=== PATIENT | male | born 1960 | race Caucasian/White ===

== ENCOUNTER 2018-12-06 10:26 | Emergency (ER) | payer SELFPAY ==
[2018-12-06] MEDS ORDERED: Aspirin 81 MG Tab.Chew PO ONE (10:33)
[2018-12-06] MEDS ORDERED: Sodium Chloride 0.9% 10 ML Syringe FLUSH PRN (10:33)
[2018-12-06] MEDS ORDERED: Heparin Sodium 5,000 Units/ML Vial SUBCUT ONE (10:40)
[2018-12-06] MEDS ORDERED: Nitroglycerin/D5W 25 MG/250 ML BOTTLE IV SCH (10:45)
[2018-12-06] MEDS ORDERED: Heparin Sodium/0.45% NaCl 25,000 UNITS/500 ML BAG IV SCH (10:45)
--- NOTE | 2018-12-06 10:46 | EDM.PDOC ---
ED HPI GENERAL MEDICAL PROBLEM - General Stated Complaint: CHEST PAIN Time Seen by Provider: 12/06/18 10:26 Source of Information: Reports: Patient History Limitations: Reports: No Limitations - History of Present Illness INITIAL COMMENTS - FREE TEXT/NARRATIVE: 58 y.o.w.m in prev relative health condition, came to the ed with a friend due to severe SSCP while shoveling snow. Pain was 10/10.as he arrived in the ED examination room, pt refused Tx, IV. 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 Pt did not radiate , pt was not diaphoretic at the time. No N/V/D no other acute med issues. BP 156/96 Pulse 83 Temp 36.8 Pulse ox 98% on RA RR 18 Onset Date: 12/06/18 Onset Time: 06:00 Duration: Minutes:, Hour(s):, Getting Worse Location: Reports: Chest Quality: Reports: Pressure, Throbbing Severity: Moderate Improves with: Reports: Rest Worsens with: Reports: Movement Context: Reports: Activity (showeling snow) Associated Symptoms: Reports: Chest Pain Treatments JOINERY MACHINIST: Reports: Aspirin - Related Data Allergies Allergy/AdvReac Type Severity Reaction Status Date / Time No Known Allergies Allergy Verified 12/06/18 10:42 Home Meds: Home Meds NK [No Known Home Meds] 12/06/18 [History] ED ROS GENERAL - Review of Systems Review Of Systems: See Below Constitutional: Reports: No Symptoms HEENT: Reports: No Symptoms Respiratory: Reports: No Symptoms Cardiovascular: Reports: Chest Pain Endocrine: Reports: No Symptoms GI/Abdominal: Reports: No Symptoms : Reports: No Symptoms Musculoskeletal: Reports: No Symptoms Skin: Reports: No Symptoms Neurological: Reports: No Symptoms Psychiatric: Reports: No Symptoms Hematologic/Lymphatic: Reports: No Symptoms Immunologic: Reports: No Symptoms ED EXAM, GENERAL - Physical Exam Exam: See Below Exam Limited By: Uncooperative (Ptrefused IVs and Tx) General Appearance: Alert, WD/WN, Moderate Distress Eye Exam: Bilateral Eye: Normal Inspection Ears: Normal External Exam Ear Exam: Bilateral Ear: Auricle Normal Nose: Normal Inspection, Normal Mucosa Throat/Mouth: Normal Lips, Normal Voice, No Airway Compromise Head: Atraumatic, Normocephalic Neck: Normal Inspection, Supple, Non-Tender, Full Range of Motion Respiratory/Chest: No Respiratory Distress, Lungs Clear, Normal Breath Sounds Cardiovascular: Normal Peripheral Pulses, Regular Rate, Rhythm GI/Abdominal: Normal Bowel Sounds, Soft, Non-Tender (Male) Exam: Deferred Rectal (Males) Exam: Deferred Back Exam: Normal Inspection, Full Range of Motion Extremities: Normal Inspection, Normal Range of Motion, Non-Tender, No Pedal Edema, Normal Capillary Refill Neurological: Alert, Oriented, CN II-XII Intact, Normal Cognition, Normal Gait Psychiatric: Normal Affect Skin Exam: Warm, Dry, Intact, Normal Color, No Rash Lymphatic: No Adenopathy EKG INTERPRETATION EKG Date: 12/06/18 Time: 10:30 Rate (Beats/Min): 86 Excel: Normal P-Wave: Present QRS: Normal ST-T: Elevated QT: Normal Comparison: NA - No Prior EKG (acute inf wall OK) Course - Vital Signs Text/Narrative:: 58 y.o.w.m in prev relative health condition, came to the ed with a friend due to severe SSCP while shoveling snow. Pain was 10/10.as he arrived in the ED examination room, pt refused Tx, IV. 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 Pt did not radiate , pt was not diaphoretic at the time. No N/V/D no other acute med issues. BP 156/96 Pulse 83 Temp 36.8 Pulse ox 98% on RA RR 18 PE: WNWD muscular male with SSCP Imaging: CXR: NAD Labs: CBC nl BMP nl Troponin 0.030 ECG: ST Elevation inf leads Impression: acute inf wall OK Tx: ASA, Heparin drip with bolus, NTG drip, Brilinta Reeaxm: Pt refused for about one hour any Tx, Staff could not convict him until he spoke to a friend. 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 STAT Last Recorded V/S: Last Vital Signs Temp Pulse 97 12/06/18 11:01 Resp BP 156/96 H 12/06/18 11:01 Pulse Ox - Orders/Labs/Meds Orders: Active Orders 24 hr Category Date Time Status Cardiac Monitoring [RC] .As Directed Care 12/06/18 10:33 Active EKG Documentation Completion [RC] ASDIRECTED Care 12/06/18 10:46 Inactive CXR [Chest 1V Frontal] [CR] Stat Exams 12/06/18 10:43 Taken Heparin Sodium/0.45% NaCl [Heparin 25,000 Units in 1/2 Med 12/06/18 10:45 Active NS 500 ML] 25,000 units in 500 ml IV TITRATE Nitroglycerin/D5W [Nitroglycerin 25 MG/D5W 250 ML] Med 12/06/18 10:45 Active 25 mg in 250 ml IV TITRATE Sodium Chloride 0.9% [Saline Flush] Med 12/06/18 10:33 Active 10 ml FLUSH ASDIRECTED PRN Peripheral IV Insertion Adult [OM.PC] Stat Oth 12/06/18 10:33 Ordered EKG 12 Lead [EK] Routine Ther 12/06/18 10:45 Stop Req EKG 12 Lead [EK] Routine Ther 12/06/18 11:01 Ordered EKG 12 Lead [EK] Stat Ther 12/06/18 10:34 Ordered Medication Orders Nitroglycerin/Dextrose (Nitroglycerin 25 Mg/D5w 250 Ml) 25 mg in 250 mls @ 6 mls/hr IV TITRATE REAL; Protocol Last Admin: 12/06/18 11:18 Dose: 10 mcg/min, 6 mls/hr Heparin Sodium/Sodium Chloride (Heparin 25,000 Units In 1/2 Ns 500 Ml) 25,000 units in 500 mls @ 18 mls/hr IV TITRATE REAL; Protocol Last Admin: 12/06/18 11:10 Dose: 12 units/kg/hr, 18 mls/hr Sodium Chloride (Saline Flush) 10 ml FLUSH ASDIRECTED PRN PRN Reason: Keep Vein Open Labs: Laboratory Tests 12/06/18 12/06/18 12/06/18 Range/Units 10:20 10:20 10:20 WBC 11.2 (4.5-12.0) X10-3/uL RBC 4.46 (4.30-5.75) x10(6)uL Hgb 13.9 (11.5-15.5) g/dL Hct 40.0 (30.0-51.3) % MCV 89.7 (80-96) fL MCH 31.1 (27.7-33.6) pg MCHC 34.7 (32.2-35.4) g/dL RDW 12.4 (11.5-15.5) % Plt Count 191 (125-369) X10(3)uL MPV 8.5 (7.4-10.4) fL Neut % (Auto) 72.5 (46-82) % Lymph % (Auto) 21.3 (13-37) % [place] % (Auto) 5.1 (4-12) % Eos % (Auto) 1 (1.0-5.0) % Baso % (Auto) 0 (0-2) % Neut # (Auto) 8.1 (1.6-8.3) # Lymph # (Auto) 2.4 (0.6-5.0) # [place] # (Auto) 0.6 (0.0-1.3) # Eos # (Auto) 0.1 (0.0-0.8) # Baso # (Auto) 0.0 (0.0-0.2) # PT 9.9 (8.7-11.1) INR 1.02 (0.89-1.13) Sodium 136 (135-145) mmol/L Potassium 3.7 (3.5-5.3) mmol/L Chloride 100 (100-110) mmol/L Carbon Dioxide 25 (21-32) mmol/L BUN 24 H (7-18) mg/dL Creatinine 1.0 (0.70-1.30) mg/dL Est Cr Clr Drug Dosing TNP Estimated GFR (MDRD) > 60 (>60) BUN/Creatinine Ratio 24.0 H (9-20) Glucose 203 H (80-116) mg/dL Calcium 9.0 (8.6-10.2) mg/dL Troponin I (<0.017-0.056) ng/mL 12/06/18 Range/Units 10:20 WBC (4.5-12.0) X10-3/uL RBC (4.30-5.75) x10(6)uL Hgb (11.5-15.5) g/dL Hct (30.0-51.3) % MCV (80-96) fL MCH (27.7-33.6) pg MCHC (32.2-35.4) g/dL RDW (11.5-15.5) % Plt Count (125-369) X10(3)uL MPV (7.4-10.4) fL Neut % (Auto) (46-82) % Lymph % (Auto) (13-37) % [place] % (Auto) (4-12) % Eos % (Auto) (1.0-5.0) % Baso % (Auto) (0-2) % Neut # (Auto) (1.6-8.3) # Lymph # (Auto) (0.6-5.0) # [place] # (Auto) (0.0-1.3) # Eos # (Auto) (0.0-0.8) # Baso # (Auto) (0.0-0.2) # PT (8.7-11.1) INR (0.89-1.13) Sodium (135-145) mmol/L Potassium (3.5-5.3) mmol/L Chloride (100-110) mmol/L Carbon Dioxide (21-32) mmol/L BUN (7-18) mg/dL Creatinine (0.70-1.30) mg/dL Est Cr Clr Drug Dosing Estimated GFR (MDRD) (>60) BUN/Creatinine Ratio (9-20) Glucose (80-116) mg/dL Calcium (8.6-10.2) mg/dL Troponin I 0.030 (<0.017-0.056) ng/mL Meds: Medications Generic Name Dose Route Start Last Admin Trade Name Daleq PRN Reason Stop Dose Admin Nitroglycerin/Dextrose 25 mg in 250 mls @ 6 mls/hr 12/06/18 10:45 12/06/18 11 :18 Nitroglycerin 25 Mg/D5w 250 Ml IV 10 mcg/min TITRATE REAL 6 mls/hr Administration Protocol 10 MCG/MIN Heparin Sodium/Sodium Chloride 25,000 units in 500 mls @ 18 mls/hr 12/06/18 10 :45 12/06/18 11:10 Heparin 25,000 Units In 1/2 Ns 500 Ml IV 12 units/kg/hr TITRATE REAL 18 mls/hr Administration Protocol 12 UNITS/KG/HR Sodium Chloride 10 ml 12/06/18 10:33 Saline Flush FLUSH ASDIRECTED PRN Keep Vein Open Discontinued Medications Generic Name Dose Route Start Last Admin Trade Name Daleq PRN Reason Stop Dose Admin Aspirin 324 mg 12/06/18 10:33 12/06/18 10:49 Aspirin PO 12/06/18 10:34 81 mg ONETIME ONE Administration Heparin Sodium (Porcine) 4,200 units 12/06/18 10:40 12/06/18 11:08 Heparin Sodium SUBCUT 12/06/18 10:41 4,200 units ONETIME ONE Administration Metoprolol Tartrate 2.5 mg 12/06/18 10:58 12/06/18 11:01 Lopressor IVPUSH 12/06/18 10:59 2.5 mg ONETIME ONE Administration Ticagrelor 180 mg 12/06/18 11:41 12/06/18 11:45 Brilinta PO 12/06/18 11:42 180 mg ONETIME ONE Administration Departure - Departure Time of Disposition: 11:41 Disposition: DC/Tfer to Acute Hospital 02 Reason for Transfer *Q: Other (Acute OK) Condition: Fair Clinical Impression: Acute OK Referrals: PCP,None [Primary Care Provider] - - My Orders Last 24 Hours: My Active Orders 12/06/18 10:33 Cardiac Monitoring [RC] .As Directed Sodium Chloride 0.9% [Saline Flush] 10 ml FLUSH ASDIRECTED PRN Peripheral IV Insertion Adult [OM.PC] Stat 12/06/18 10:34 EKG 12 Lead [EK] Stat 12/06/18 10:43 CXR [Chest 1V Frontal] [CR] Stat 12/06/18 10:45 Heparin Sodium/0.45% NaCl [Heparin 25,000 Units in 1/2 NS 500 ML] 25,000 units in 500 ml IV TITRATE Nitroglycerin/D5W [Nitroglycerin 25 MG/D5W 250 ML] 25 mg in 250 ml IV TITRATE EKG 12 Lead [EK] Routine 12/06/18 10:46 EKG Documentation Completion [RC] ASDIRECTED 12/06/18 11:01 EKG 12 Lead [EK] Routine - Assessment/Plan Last 24 Hours: My Active Orders 12/06/18 10:33 Cardiac Monitoring [RC] .As Directed Sodium Chloride 0.9% [Saline Flush] 10 ml FLUSH ASDIRECTED PRN Peripheral IV Insertion Adult [OM.PC] Stat 12/06/18 10:34 EKG 12 Lead [EK] Stat 12/06/18 10:43 CXR [Chest 1V Frontal] [CR] Stat 12/06/18 10:45 Heparin Sodium/0.45% NaCl [Heparin 25,000 Units in 1/2 NS 500 ML] 25,000 units in 500 ml IV TITRATE Nitroglycerin/D5W [Nitroglycerin 25 MG/D5W 250 ML] 25 mg in 250 ml IV TITRATE EKG 12 Lead [EK] Routine 12/06/18 10:46 EKG Documentation Completion [RC] ASDIRECTED 12/06/18 11:01 EKG 12 Lead [EK] Routine
[2018-12-06] MEDS ORDERED: Metoprolol Tartrate 5 MG/5 ML SDV IVPUSH ONE (10:58)
--- NOTE | 2018-12-06 11:29 | PCM.SN ---
- Free Text/Narrative Note: Anesthesia Time: 1053 to 1100 Date: 12/06/2018 RE: Vascular Access I was called to the ED by the ED physician for vascular acces on the patient in Trauma Room 1. The nursing staff had tried without success. I found a vein in his left hand. I prepped the area with alcohol wipe X 2 and inserted a #22 g catheter X 1 attempt. It flushed well with 10 ml's normal saline and no patient complaints of pain. A dressing was applied. He tolerated this well. Doug Leigh CRNA, A
[2018-12-06] MEDS ORDERED: Ticagrelor 90 MG Tab PO ONE (11:41)
--- NOTE | 2018-12-06 13:21 | CR ---
INDICATION: Chest pain. CHEST: A portable AP upright view of the chest was obtained 12/06/18 - no comparisons were available. Calcifications are noted in the arch of the aorta. Overlying EKG leads are noted. The heart is normal in size and shape. An active infiltrate or effusion was not identified. IMPRESSION: 1. No acute process. 2. ASD aorta - mild. MTDD
== END 2018-12-06 11:50 ==
LOC: FB.ED 10:26
DX: I21.19 ST elevation (STEMI) myocardial infarction involving other coronary artery of inferior wall (principal)
CPT/HCPCS: 36415; 71045; 80048; 84484; 85025; 85610; 93005; 96365; 96368; 96372; 96375; 99285; A9270; J1644; J3490